=== PATIENT | female | born 1960 | race African-American/Black ===

== ENCOUNTER 2016-11-11 05:12 | Emergency (ER) | payer MEDICAID ==
[~2016-11-11] VITALS: Ht 160 cm; Wt 111.0 kg
[~2016-11-11 05:12] MED LIST: ASPI-1035 PO; BENA20TA3 PO; CALICUM PO; CHOLESTEROL PILL PO; DIPH25CA83 PO; GABA-290 PO; METF10002 PO; TRAM50TA PO
[2016-11-11] MEDS ORDERED: KETOROLAC 60MG/2ML VIAL IM ONE (06:45)
[2016-11-11 08:20] VITALS: BP 147/74
== END 2016-11-11 09:26 | disposition home or self-care (01) ==
LOC: ER 05:12
DX: M43.16 Spondylolisthesis, lumbar region (principal); E11.9 Type 2 diabetes mellitus without complications; E78.00 Pure hypercholesterolemia, unspecified; I10 Essential (primary) hypertension; Z79.82 Long term (current) use of aspirin; Z79.4 Long term (current) use of insulin; Z79.1 Long term (current) use of non-steroidal anti-inflammatories (NSAID); Z79.899 Other long term (current) drug therapy; Z90.710 Acquired absence of both cervix and uterus
CPT/HCPCS: 72100; 96372; 99284; J1885

== ENCOUNTER 2016-12-18 06:29 | Inpatient (IN) | payer MEDICAID ==
[~2016-12-18] VITALS: Ht 160 cm; Wt 113.9 kg
[~2016-12-18 06:29] MED LIST changes: -ASPI-1035 PO; +ASPI-1158 PO
[2016-12-18] MEDS ORDERED: KETOROLAC 15MG/ML VIAL IV ONE (07:30)
[2016-12-18 07:49] LABS: BASOPHILS % 0.8 % (0.0-2.0); EOSINOPHILS % 1.9 % (0.0-5.0); HEMATOCRIT. 32.5 % (36.0-48.0); HEMOGLOBIN. 10.5 g/dL (12.0-16.0); MEAN CORPUSCULAR HEMOGLOBIN 23.8 pg (28.0-32.0); MEAN CORPUSCULAR VOLUME 73.3 fL (81.0-99.0); MEAN PLATELET VOLUME 8.3 fl (7.4-10.4); NEUTROPHILS % 47.3 % (40.0-76.0); PLATELET 315 x1000/uL (130-400); RED BLOOD CELL COUNT 4.43 mill/uL (4.2-5.4)
[2016-12-18 07:53] LABS: PARTIAL THROMBOPLASTIN TIME 29.4 sec (24.0-34.0); PROTHROMBIN TIME 10.6 sec
[2016-12-18 07:59] LABS: CARBON DIOXIDE 29 mEq/L (21-32); CHLORIDE 104 mEq/L (98-107); TROPONIN I < 0.02 ng/mL (0.00-0.04)
[2016-12-18] MEDS ORDERED: ASPIRIN 325MG EC TABLET PO ONE (09:15)
[2016-12-18] MEDS ORDERED: QUET50TA11 PO (14:57)
[2016-12-18 15:00] VITALS: BP 119/87
[2016-12-18] MEDS ORDERED: SIMV40TA5 PO (16:02)
[2016-12-18] MEDS ORDERED: MIRT15TA6 PO (16:03)
[2016-12-18] MEDS ORDERED: PNEUMOCOCCAL 23-VAL P-SAC VAC 0.5 ML IM ONE (16:45)
[2016-12-18] MEDS ORDERED: QUETIAPINE FUMARATE 50MG TABLET PO SCH ×2 (17:00→21:00)
[2016-12-18] MEDS ORDERED: MEDICATION NOT ON FORMULARY EA (Gabapentin 600 MG) PO SCH (17:00)
[2016-12-18] MEDS ORDERED: MEDICATION NOT ON FORMULARY EA (Simvastatin 1 TAB) PO SCH (17:00)
[2016-12-18] MEDS: BLOOD SUGAR DIAGNOSTIC STRIP TEST SCH ×2 (17:19→21:23)
[2016-12-18] MEDS: INSULIN LISPRO 100 UNITS/ML SUBCUT SCH ×2 (17:20→21:00)
[2016-12-18] MEDS ORDERED: DEXTROSE 50% WATER 50ML SYRINGE IV PRN (17:30)
[2016-12-18] MEDS: GABAPENTIN 300MG CAPSULE PO SCH (17:55)
[2016-12-18] MEDS: METFORMIN HCL 500MG TABLET PO SCH (17:55)
[2016-12-18] MEDS: HYDROCODONE/ACETAMINOPHEN 5/325MG TABLET PO PRN (17:56)
[2016-12-18 20:00] VITALS: BP 103/63
[2016-12-18] MEDS ORDERED: DIPHENHYDRAMINE 25MG CAPSULE PO PRN (21:00)
[2016-12-18] MEDS: ATORVASTATIN CALCIUM 20MG TABLET PO SCH (21:31)
[2016-12-18] MEDS: MIRTAZAPINE 15MG TABLET PO SCH (21:32)
[2016-12-19] VITALS: BP 106/65
[2016-12-19] MEDS: HYDROCODONE/ACETAMINOPHEN 5/325MG TABLET PO PRN ×5 (01:37→20:13)
[2016-12-19 04:00] VITALS: BP 110/67
[2016-12-19] MEDS: BLOOD SUGAR DIAGNOSTIC STRIP TEST SCH ×4 (06:26→20:27)
[2016-12-19] MEDS: INSULIN LISPRO 100 UNITS/ML SUBCUT SCH ×4 (07:38→20:27)
[2016-12-19 07:39] VITALS: BP 102/60
[2016-12-19] MEDS: BENAZEPRIL 20MG TABLET PO SCH (08:29)
[2016-12-19] MEDS: METFORMIN HCL 500MG TABLET PO SCH ×2 (08:32→18:29)
[2016-12-19] MEDS: ASPIRIN 81MG EC TABLET PO SCH (08:32)
[2016-12-19] MEDS: GABAPENTIN 300MG CAPSULE PO SCH ×2 (08:32→16:11)
[2016-12-19 12:00] VITALS: BP 100/78
[2016-12-19] MEDS ORDERED: DOCUSATE SODIUM 100MG CAPSULE PO PRN (12:45)
[2016-12-19 16:00] VITALS: BP 110/65
[2016-12-19] MEDS: DEXAMETHASONE 4MG/ML 1ML VIAL IV SCH (18:59)
[2016-12-19 20:00] VITALS: BP 109/66
[2016-12-19] MEDS: ATORVASTATIN CALCIUM 20MG TABLET PO SCH (20:22)
[2016-12-19] MEDS: MIRTAZAPINE 15MG TABLET PO SCH (20:22)
[2016-12-19] MEDS ORDERED: QUETIAPINE FUMARATE 50MG TABLET PO SCH (21:00)
[2016-12-20] VITALS (9 sets, daily range): BP systolic 116–150; BP diastolic 69–94
[2016-12-20] MEDS: DEXAMETHASONE 4MG/ML 1ML VIAL IV SCH ×4 (00:15→17:43)
[2016-12-20] MEDS: HYDROCODONE/ACETAMINOPHEN 5/325MG TABLET PO PRN ×4 (00:25→15:20)
[2016-12-20] MEDS: BLOOD SUGAR DIAGNOSTIC STRIP TEST SCH ×3 (06:31→17:36)
[2016-12-20] MEDS: ASPIRIN 81MG EC TABLET PO SCH (08:24)
[2016-12-20] MEDS: BENAZEPRIL 20MG TABLET PO SCH (08:24)
[2016-12-20] MEDS: GABAPENTIN 300MG CAPSULE PO SCH ×2 (08:25→17:42)
[2016-12-20] MEDS: METFORMIN HCL 500MG TABLET PO SCH ×2 (08:25→17:43)
[2016-12-20] MEDS: INSULIN LISPRO 100 UNITS/ML SUBCUT SCH ×3 (08:34→17:44)
[2016-12-20] MEDS ORDERED: MEDROL PO (17:57)
== END 2016-12-20 20:35 | disposition home or self-care (01) | DRG 347 ==
LOC: ER 07:54 → 6WST 11:05 → EDBEDREQ 11:09 → ENRESERV 13:11
PROVIDERS: ADMIT Family Medicine; ATTEND Family Medicine
DX: M50.223 Other cervical disc displacement at C6-C7 level (principal); Z68.41 Body mass index [BMI] 40.0-44.9, adult; M48.02 Spinal stenosis, cervical region; E66.01 Morbid (severe) obesity due to excess calories; I10 Essential (primary) hypertension; E11.9 Type 2 diabetes mellitus without complications; D64.9 Anemia, unspecified; M19.90 Unspecified osteoarthritis, unspecified site; R53.1 Weakness; E78.00 Pure hypercholesterolemia, unspecified; E78.5 Hyperlipidemia, unspecified; Z86.73 Personal history of transient ischemic attack (TIA), and cerebral infarction without residual deficits; Z90.710 Acquired absence of both cervix and uterus; Z79.899 Other long term (current) drug therapy; Z79.82 Long term (current) use of aspirin
CPT/HCPCS: 36415; 70450; 70551; 71010; 72125; 72141; 73030; 80048; 82962; 83519; 84484; 85025; 85610; 85730; 90732; 93005; 96374; 97162; 99285; J1100; J1815; J1885; Q0163

== ENCOUNTER 2018-09-23 23:38 | Inpatient (IN) | payer MEDICAID ==
[~2018-09-23] VITALS: Ht 167.6 cm; Wt 111.8 kg
[~2018-09-23 23:38] MED LIST changes: +BENA20TA10 PO; -BENA20TA3 PO; +MEDROL PO; +METF-416 PO; -METF10002 PO; +MIRT15TA6 PO; +QUET50TA PO; +SIMV40TA5 PO
[2018-09-24] MEDS ORDERED: SODIUM CHLORIDE 0.9% 1,000 ML IV ONE (00:42)
[2018-09-24 00:53] LABS: BASOPHILS % 0.8 % (0.0-2.0); EOSINOPHILS % 2.1 % (0.0-5.0); HEMATOCRIT. 37.7 % (36.0-48.0); LYMPHOCYTES % 32.9 % (20.0-50.0); MEAN CORPUSCULAR HEMOGLOBIN 23.8 pg (28.0-32.0); MEAN CORPUSCULAR VOLUME 74.5 fL (81.0-99.0); MONOCYTES % 6.9 % (2.0-8.0); NEUTROPHILS % 57.3 % (40.0-76.0); PLATELET 416 x1000/uL (130-400); RED BLOOD CELL COUNT 5.06 mill/uL (4.2-5.4); RED CELL DISTRIBUTION WIDTH 16.6 % (11.6-14.6)
[2018-09-24 01:00] LABS: CHLORIDE 106 mEq/L (98-107)
[2018-09-24 01:02] LABS: ETHANOL BLOOD 221 mg/dL
[2018-09-24 02:26] LABS: PROTHROMBIN TIME 10.7 sec (9.6-11.0)
[2018-09-24 02:41] LABS: CLARITY URINE CLOUDY (CLEAR); COLOR URINE YELLOW (YELLOW); KETONES URINE NEGATIVE (NEGATIVE); LEUKOCYTE ESTERASE URINE 2+ (NEGATIVE); NITRITE URINE NEGATIVE (NEGATIVE); OCCULT BLOOD URINE NEGATIVE (NEGATIVE); PH URINE 5.5 (4.5-8.0); PROTEIN URINE NEGATIVE (NEGATIVE); SPECIFIC GRAVITY URINE 1.008 (1.005-1.030); UROBILINOGEN URINE 0.2 E.U./dL (0.2-1.0)
[2018-09-24 03:01] LABS: *BARBITURATES SCREEN URINE NEGATIVE (NEGATIVE)
[2018-09-24 03:02] LABS: *AMPHETAMINES SCREEN URINE NEGATIVE (NEGATIVE); *BENZODIAZEPINES SCREEN URINE PRESUMTIVE POSITIVE (NEGATIVE); *COCAINE SCREEN URINE NEGATIVE (NEGATIVE); METHADONE URINE SCREEN NEGATIVE (NEGATIVE); OPIATES URINE SCREEN NEGATIVE (NEGATIVE); PHENCYCLIDINE URINE SCREEN NEGATIVE (NEGATIVE)
[2018-09-24 03:03] LABS: CANNABINOID URINE SCREEN NEGATIVE (NEGATIVE)
[2018-09-24] MEDS ORDERED: DIPHENHYDRAMINE 50MG/ML VIAL IV PRN (08:00)
[2018-09-24] MEDS ORDERED: DOCUSATE SODIUM 100MG CAPSULE PO PRN (08:00)
[2018-09-24] MEDS ORDERED: NA PHOS,M-B/NA PHOS,DI-BA ENEMA 118ML PR PRN (08:00)
[2018-09-24] MEDS ORDERED: ACETAMINOPHEN 650MG/20.3ML UDC GT PRN (08:00)
[2018-09-24] MEDS ORDERED: CLONIDINE 0.1MG TABLET PO PRN (08:00)
[2018-09-24] MEDS ORDERED: ONDANSETRON HCL 4MG/2ML INJ IV PRN (08:00)
[2018-09-24] MEDS ORDERED: IPRATROPIUM/ALBUTEROL 0.5-3(2.5)MG/3ML NEB INH PRN (08:00)
[2018-09-24] MEDS ORDERED: DEXTROSE 50% WATER 50ML SYRINGE IV PRN (08:00)
[2018-09-24] MEDS ORDERED: ACETAMINOPHEN 650MG SUPP PR PRN (08:00)
[2018-09-24] MEDS ORDERED: MAGNESIUM/ALUMINUM HYDROXIDE/SIMETHICONE 30ML UDC PO PRN (08:00)
[2018-09-24] MEDS ORDERED: ACETAMINOPHEN 325MG TABLET PO PRN (08:00)
[2018-09-24] MEDS: BLOOD SUGAR DIAGNOSTIC STRIP TEST SCH ×4 (09:00→21:24)
[2018-09-24] MEDS: FOLIC ACID 1MG TABLET PO SCH (10:32)
[2018-09-24] MEDS: SODIUM CHLORIDE 0.45% 1,000 ML IV SCH ×2 (10:33→16:43)
[2018-09-24] MEDS: THIAMINE HCL 100MG TABLET PO SCH (10:33)
[2018-09-24] MEDS: HYDROCODONE/ACETAMINOPHEN 5/325MG TABLET PO PRN (11:12)
[2018-09-24] MEDS ORDERED: NITROFURANTOIN 100MG M/M CAPSULE PO ONE (13:00)
[2018-09-24 14:10] LABS: BASOPHILS % 1.1 % (0.0-2.0); EOSINOPHILS % 2.6 % (0.0-5.0); HEMATOCRIT. 33.4 % (36.0-48.0); HEMOGLOBIN. 10.6 g/dL (12.0-16.0); LYMPHOCYTES % 41.5 % (20.0-50.0); MEAN CORPUSCULAR HEMOGLOBIN 23.7 pg (28.0-32.0); MEAN CORPUSCULAR VOLUME 74.4 fL (81.0-99.0); MEAN PLATELET VOLUME 8.3 fl (7.4-10.4); MONOCYTES % 9.6 % (2.0-8.0); NEUTROPHILS % 45.2 % (40.0-76.0); PLATELET 388 x1000/uL (130-400); RED BLOOD CELL COUNT 4.48 mill/uL (4.2-5.4); RED CELL DISTRIBUTION WIDTH 16.6 % (11.6-14.6)
[2018-09-24 14:15] LABS: CHLORIDE 106 mEq/L (98-107)
[2018-09-24 14:23] LABS: LDL CHOLESTEROL 78 mg/dL (5-100)
[2018-09-24 14:24] LABS: HDL CHOLESTEROL 55 mg/dL (40-59)
[2018-09-24 17:35] VITALS: BP 127/62
[2018-09-24 17:54] VITALS: BP 127/62
[2018-09-24] MEDS: GUAIFENESIN 200MG/10ML SUGAR FREE UDC PO PRN (18:01)
[2018-09-24 20:00] VITALS: BP 134/92
[2018-09-24] MEDS: INSULIN LISPRO 100 UNITS/ML SUBCUT SCH (21:31)
[2018-09-24] MEDS: SODIUM CHLORIDE 0.9% INJ 3ML FLUSH IVF SCH (21:32)
[2018-09-25] VITALS: BP 125/82
[2018-09-25 04:00] VITALS: BP 121/72
[2018-09-25] MEDS: GUAIFENESIN 200MG/10ML SUGAR FREE UDC PO PRN ×3 (04:17→17:31)
[2018-09-25] MEDS: SODIUM CHLORIDE 0.45% 1,000 ML IV SCH (04:18)
[2018-09-25 05:37] LABS: BASOPHILS % 0.5 % (0.0-2.0); EOSINOPHILS % 6.4 % (0.0-5.0); HEMATOCRIT. 30.7 % (36.0-48.0); HEMOGLOBIN. 9.9 g/dL (12.0-16.0); LYMPHOCYTES % 51.2 % (20.0-50.0); MEAN CORPUSCULAR HEMOGLOBIN 23.8 pg (28.0-32.0); MEAN CORPUSCULAR VOLUME 73.9 fL (81.0-99.0); MEAN PLATELET VOLUME 8.1 fl (7.4-10.4); MONOCYTES % 10.5 % (2.0-8.0); NEUTROPHILS % 31.4 % (40.0-76.0); PLATELET 332 x1000/uL (130-400); RED BLOOD CELL COUNT 4.15 mill/uL (4.2-5.4); RED CELL DISTRIBUTION WIDTH 16.6 % (11.6-14.6)
[2018-09-25] MEDS: SODIUM CHLORIDE 0.9% INJ 3ML FLUSH IVF SCH ×2 (05:46→14:00)
[2018-09-25] MEDS: INSULIN LISPRO 100 UNITS/ML SUBCUT SCH ×4 (05:46→20:55)
[2018-09-25] MEDS: BLOOD SUGAR DIAGNOSTIC STRIP TEST SCH ×4 (05:46→20:55)
[2018-09-25 07:27] LABS: CHLORIDE 106 mEq/L (98-107)
[2018-09-25 07:34] LABS: LDL CHOLESTEROL 74 mg/dL (5-100)
[2018-09-25 07:35] LABS: HDL CHOLESTEROL 55 mg/dL (40-59)
[2018-09-25 08:00] VITALS: BP 123/70
[2018-09-25] MEDS: THIAMINE HCL 100MG TABLET PO SCH (08:40)
[2018-09-25] MEDS: FOLIC ACID 1MG TABLET PO SCH (08:40)
[2018-09-25] MEDS: HYDROCODONE/ACETAMINOPHEN 5/325MG TABLET PO PRN ×2 (10:23→20:15)
[2018-09-25 12:00] VITALS: BP 144/80
[2018-09-25 16:00] VITALS: BP 150/84
[2018-09-25 20:00] VITALS: BP 131/79
[2018-09-26] VITALS: BP 167/83
[2018-09-26] MEDS: SODIUM CHLORIDE 0.9% INJ 3ML FLUSH IVF SCH ×2 (00:24→05:37)
[2018-09-26] MEDS: SODIUM CHLORIDE 0.45% 1,000 ML IV SCH (00:26)
[2018-09-26 04:00] VITALS: BP 141/72
[2018-09-26] MEDS: BLOOD SUGAR DIAGNOSTIC STRIP TEST SCH ×2 (05:39→12:10)
[2018-09-26] MEDS: HYDROCODONE/ACETAMINOPHEN 5/325MG TABLET PO PRN (05:39)
[2018-09-26 08:00] VITALS: BP 138/72
[2018-09-26] MEDS: FOLIC ACID 1MG TABLET PO SCH (08:24)
[2018-09-26] MEDS: THIAMINE HCL 100MG TABLET PO SCH (08:24)
[2018-09-26] MEDS: GUAIFENESIN 200MG/10ML SUGAR FREE UDC PO PRN (09:10)
[2018-09-26 12:00] VITALS: BP 106/62
[2018-09-26] MEDS: INSULIN LISPRO 100 UNITS/ML SUBCUT SCH (12:40)
[2018-09-26 13:20] VITALS: BP 106/62
== END 2018-09-26 14:39 | disposition home or self-care (01) | DRG 812 ==
LOC: ER 23:38 → 8WST 09-24 04:07 → ENRESERV 09-24 11:50
PROVIDERS: ADMIT Family Medicine; ATTEND Family Medicine
DX: T45.0X1A Poisoning by antiallergic and antiemetic drugs, accidental (unintentional), initial encounter (principal); G92 Toxic encephalopathy; T43.211A Poisoning by selective serotonin and norepinephrine reuptake inhibitors, accidental (unintentional), initial encounter; R45.851 Suicidal ideations; F32.9 Major depressive disorder, single episode, unspecified; E11.9 Type 2 diabetes mellitus without complications; I10 Essential (primary) hypertension; E78.5 Hyperlipidemia, unspecified; Z90.710 Acquired absence of both cervix and uterus; Z79.899 Other long term (current) drug therapy; Z79.82 Long term (current) use of aspirin; Y92.89 Other specified places as the place of occurrence of the external cause; Z72.89 Other problems related to lifestyle
CPT/HCPCS: 36415; 80061; 80305; 80307; 80320; 80329; 82962; 93005; 99291; J1815; J7030; G0480

== ENCOUNTER 2018-10-13 20:19 | Emergency (ER) | payer MEDICAID ==
[~2018-10-13] VITALS: Ht 157.5 cm; Wt 112.0 kg
[2018-10-13] MEDS ORDERED: HYDROCODONE/ACETAMINOPHEN 5/325MG TABLET PO ONE (22:30)
[2018-10-13 23:45] VITALS: BP 129/69
== END 2018-10-13 23:46 | disposition home or self-care (01) ==
LOC: ER 20:19
DX: S39.012A Strain of muscle, fascia and tendon of lower back, initial encounter (principal); I10 Essential (primary) hypertension; E78.00 Pure hypercholesterolemia, unspecified; E11.9 Type 2 diabetes mellitus without complications; M19.90 Unspecified osteoarthritis, unspecified site; Z90.710 Acquired absence of both cervix and uterus; V89.2XXA Person injured in unspecified motor-vehicle accident, traffic, initial encounter; Y93.89 Activity, other specified; Y92.89 Other specified places as the place of occurrence of the external cause; Y99.8 Other external cause status
CPT/HCPCS: 72100; 99283

== ENCOUNTER 2019-04-24 10:39 | Emergency (ER) | payer MEDICAID ==
[~2019-04-24] VITALS: Ht 160 cm; Wt 112.0 kg
[2019-04-24] MEDS ORDERED: KETOROLAC 60MG/2ML VIAL IM STA (12:21)
[2019-04-24] MEDS ORDERED: DEXAMETHASONE 10 MG/ML VIAL IM ONE (12:30)
[2019-04-24 12:55] LABS: CLARITY URINE CLEAR (CLEAR); COLOR URINE YELLOW (YELLOW); KETONES URINE TRACE (NEGATIVE); LEUKOCYTE ESTERASE URINE 2+ (NEGATIVE); NITRITE URINE NEGATIVE (NEGATIVE); OCCULT BLOOD URINE NEGATIVE (NEGATIVE); PH URINE 6.5 (4.5-8.0); PROTEIN URINE NEGATIVE (NEGATIVE)
[2019-04-24 13:45] VITALS: BP 163/83
[2019-04-24] MEDS ORDERED: HYDROCODONE/ACETAMINOPHEN 5/325MG TABLET PO STA (13:45)
== END 2019-04-24 13:47 | disposition home or self-care (01) ==
LOC: ER 10:39
DX: M54.42 Lumbago with sciatica, left side (principal); N39.0 Urinary tract infection, site not specified; E11.8 Type 2 diabetes mellitus with unspecified complications; I10 Essential (primary) hypertension; E78.00 Pure hypercholesterolemia, unspecified; M19.90 Unspecified osteoarthritis, unspecified site; Z90.710 Acquired absence of both cervix and uterus
CPT/HCPCS: 81003; 96372; 99283; J1100; J1885

== ENCOUNTER 2019-08-16 05:29 | Emergency (ER) | payer MEDICAID ==
[~2019-08-16] VITALS: Ht 157.5 cm; Wt 110.0 kg
[~2019-08-16 05:29] MED LIST changes: +SIMV-46 PO; -SIMV40TA5 PO
[2019-08-16] MEDS ORDERED: ACETAMINOPHEN 325MG TABLET PO ONE (06:45)
[2019-08-16] MEDS ORDERED: KETOROLAC 15MG/ML VIAL IM ONE (06:45)
[2019-08-16 08:42] VITALS: BP 124/80
== END 2019-08-16 09:24 | disposition home or self-care (01) ==
LOC: ER 06:31
DX: M25.562 Pain in left knee (principal); M25.552 Pain in left hip; I10 Essential (primary) hypertension; E78.00 Pure hypercholesterolemia, unspecified; E11.9 Type 2 diabetes mellitus without complications; Z90.710 Acquired absence of both cervix and uterus; Z79.84 Long term (current) use of oral hypoglycemic drugs; Z79.82 Long term (current) use of aspirin; W10.8XXA Fall (on) (from) other stairs and steps, initial encounter; Y93.89 Activity, other specified; Y92.018 Other place in single-family (private) house as the place of occurrence of the external cause
CPT/HCPCS: 73502; 73560; 96372; 99284; J1885

== ENCOUNTER 2022-05-03 14:59 | Emergency (ER) | payer MEDICAID ==
[~2022-05-03] VITALS: Ht 165.1 cm; Wt 91.0 kg
[~2022-05-03 14:59] MED LIST changes: -ASPI-1158 PO; +ASPI-1406 PO; +BENA-8 PO; -BENA20TA10 PO; +MIRT-89 PO; -MIRT15TA6 PO
[2022-05-03] MEDS ORDERED: HYDROCODONE/ACETAMINOPHEN 5/325MG TABLET PO ONE (16:15)
[2022-05-03 16:59] VITALS: BP 152/84
[2022-05-03] MEDS ORDERED: ACET-2708 MT ×3 (17:42→17:53)
[2022-05-03] MEDS ORDERED: CYCL10TA21 MT ×3 (17:42→17:53)
== END 2022-05-03 18:19 | disposition home or self-care (01) ==
LOC: ER 15:21
DX: S16.1XXA Strain of muscle, fascia and tendon at neck level, initial encounter (principal); X58.XXXA Exposure to other specified factors, initial encounter; Y93.89 Activity, other specified; Y92.89 Other specified places as the place of occurrence of the external cause; Y99.8 Other external cause status; M25.511 Pain in right shoulder; E11.9 Type 2 diabetes mellitus without complications; E78.00 Pure hypercholesterolemia, unspecified; I10 Essential (primary) hypertension; Z90.710 Acquired absence of both cervix and uterus; Z79.899 Other long term (current) drug therapy
CPT/HCPCS: 99283

== ENCOUNTER 2023-10-17 06:44 | Emergency (ER) | payer MEDICAID ==
[~2023-10-17] VITALS: Ht 157.5 cm; Wt 96.0 kg
[~2023-10-17 06:44] MED LIST changes: +ACET-2708 MT; +CYCL10TA21 MT; -DIPH25CA83 PO; -MEDROL PO; -METF-416 PO; +MOM PO; +POLY119P2 PO; +SENN-139 PO; -TRAM50TA PO
[2023-10-17 06:52] VITALS: BP 144/73; PULSE 70; RESP 15; TEMP 97.3; O2SAT 100
[2023-10-17] MEDS: KETOROLAC 60MG/2ML VIAL IM ONE (08:18)
[2023-10-17] MEDS ORDERED: T3 PO (08:29)
[2023-10-17] MEDS ORDERED: IBUP-2028 PO (08:29)
== END 2023-10-17 09:02 | disposition home or self-care (01) ==
LOC: ER 06:44
DX: M54.40 Lumbago with sciatica, unspecified side (principal); I10 Essential (primary) hypertension; E11.9 Type 2 diabetes mellitus without complications; Z90.710 Acquired absence of both cervix and uterus
CPT/HCPCS: 72100; 96372; 99283; J1885; Z7610

== ENCOUNTER 2023-11-13 15:11 | Emergency (ER) | payer MEDICAID ==
[~2023-11-13] VITALS: Ht 167.6 cm; Wt 113.0 kg
[~2023-11-13 15:11] MED LIST changes: +IBUP-2028 PO; +T3 PO
[2023-11-13 15:19] VITALS: O2SAT 100
[2023-11-13] MEDS ORDERED: ACETAMINOPHEN 500MG TABLET PO ONE (15:45)
[2023-11-13] MEDS: ACETAMINOPHEN 500MG TABLET PO NR (15:45)
[2023-11-13] MEDS ORDERED: ACET-2708 MT (17:21)
[2023-11-13] MEDS ORDERED: LIDO700A15 TP (17:21)
[2023-11-13 18:00] VITALS: BP 155/81; PULSE 90; RESP 17; TEMP 97.8
== END 2023-11-13 21:25 | disposition home or self-care (01) ==
LOC: ER 15:11
DX: S96.912A Strain of unspecified muscle and tendon at ankle and foot level, left foot, initial encounter (principal); E11.9 Type 2 diabetes mellitus without complications; I10 Essential (primary) hypertension; Z90.710 Acquired absence of both cervix and uterus; Z79.899 Other long term (current) drug therapy; W18.39XA Other fall on same level, initial encounter; Y93.89 Activity, other specified; Y92.89 Other specified places as the place of occurrence of the external cause; Y99.8 Other external cause status
CPT/HCPCS: 73610; 73630; 99284

== ENCOUNTER 2024-12-15 11:14 | Emergency (ER) | payer MEDICAID ==
[~2024-12-15] VITALS: Ht 165.1 cm; Wt 82.0 kg
[~2024-12-15 11:14] MED LIST changes: +LIDO-53 TP
[2024-12-15 11:36] VITALS: O2SAT 100
[2024-12-15] MEDS ORDERED: KETO15CR2 TP (13:27)
[2024-12-15] MEDS ORDERED: DIPH25CA83 MT (13:27)
[2024-12-15] MEDS ORDERED: KETO10TA2 MT (13:27)
[2024-12-15] MEDS ORDERED: DIPHENHYDRAMINE 50MG CAPSULE PO ONE (13:30)
[2024-12-15] MEDS: KETOROLAC 30MG/ML VIAL IM ONE (14:02)
[2024-12-15] MEDS: DIPHENHYDRAMINE 25MG CAPSULE PO NR (14:02)
[2024-12-15 15:10] VITALS: BP 123/79; PULSE 73; RESP 16; TEMP 36.8; O2SAT 100
== END 2024-12-15 15:12 | disposition home or self-care (01) ==
LOC: ER 11:14
DX: B35.4 Tinea corporis (principal); E11.9 Type 2 diabetes mellitus without complications; I10 Essential (primary) hypertension; Z79.1 Long term (current) use of non-steroidal anti-inflammatories (NSAID); Z79.82 Long term (current) use of aspirin; Z79.899 Other long term (current) drug therapy; Z90.710 Acquired absence of both cervix and uterus
CPT/HCPCS: 99283; 96372; J1885; Q0163